=== PATIENT | male | born 1950 | race Caucasian/White ===

== ENCOUNTER 2016-09-19 14:22 | Emergency (ER) | payer SELFPAY ==
[~2016-09-19] VITALS: Ht 162.5 cm; Wt 61.2 kg
[~2016-09-19 14:22] MED LIST: COLCHICINE0.6 MG PO; DICLOFENAC POTA50 MG PO; HYDROCODONE BIT1 T11 PO; K-DUR 1010 MEQ PO; LASIX20 MG PO; MEDROL DOSEPAK4 MG PO
== END 2016-09-19 15:28 | disposition short-term general hospital (02) ==
LOC: ED 14:22
DX: I21.3 ST elevation (STEMI) myocardial infarction of unspecified site (principal)

== ENCOUNTER 2017-11-01 21:32 | Emergency (ER) | payer MEDICAID ==
[~2017-11-01] VITALS: Ht 170.1 cm; Wt 63.5 kg
[2017-11-01 21:37] VITALS: BP 142/70
[2017-11-01] MEDS ORDERED: NAPROSYN500 MG PO (22:17)
[2017-11-01] MEDS ORDERED: PREDNISONE50 MG PO (22:17)
== END 2017-11-01 22:30 | disposition home or self-care (01) ==
LOC: ED 21:32
DX: M10.9 Gout, unspecified (principal); F17.200 Nicotine dependence, unspecified, uncomplicated; I25.2 Old myocardial infarction

== ENCOUNTER 2017-12-25 16:09 | Inpatient (IN) | payer OTHER ==
[~2017-12-25] VITALS: Ht 170.1 cm; Wt 60.8 kg
--- NOTE | ~2017-12-25 | CON ---
[place], [place] REPORT OF CONSULTATION [id number] UNIT #: [id number] ROOM: [facility] DOCTOR: DEAN GRAHAM MD BIRTHDATE: [birth year] DOS: 12/26/2017 CHIEF COMPLAINT: Chest pain. HISTORY OF PRESENT ILLNESS: The patient is a 67-year-old man who is known to have coronary artery disease. He presented on 09/19/2016 with an acute inferior ST elevation myocardial infarction. He was evaluated in the [facility] Emergency Room and sent by helicopter to [facility] where he was taken to the catheterization laboratory by Dr. Chon Gutierrez. The left main had a 30% stenosis. The LAD a 50% stenosis. Diagonal had an 80% stenosis, circumflex was clear. The right coronary artery was dominant with 100% stenosis. He did undergo single vessel angioplasty with 1.5 and 2.5 mm balloons followed by a 2.5 mm drug-eluting stent. He had no residual stenosis afterwards. Unfortunately, after he left the hospital, he was lost to follow up. Our records indicate that we attempted to call him, but his phone was not working. We also sent him letters. He did not come back for followup. His prescriptions ran out after a few months and he has not had them refilled since then. The patient states that he has had chest pain intermittently, but never as serious as it was yesterday. The pains were intense left-sided pains with a burning character. They were much worse than he had had in quite some time and therefore, he came into the Emergency Room. Since his admission here, his cardiogram has shown minimal inferior ST elevation with T-wave inversions. These are actually improved from a year ago. Troponin levels have been abnormal beginning at 0.094 and peaking at 3.040. A subsequent troponin has fallen to 2.840. The patient denies any current chest pain and is breathing easily. He denies any palpitations or lightheadedness. PAST MEDICAL HISTORY: Includes: 1. Atherosclerotic heart disease, status post ST elevation myocardial infarction 09/19/2016. 2. Status post catheterization 09/19/2016. Left main 30% stenosis, LAD 50% stenosis. Diagonal 80% stenosis, circumflex 0% stenosis, dominant right coronary artery is 100% occluded. The patient underwent angioplasty followed by placement of a 2.5 mm drug-eluting stent with 0% residual stenosis. The patient subsequently lost to follow up. 3. History gastroesophageal reflux disease. 4. History of gout. 5. shelter and ongoing cigarette abuse. 6. shelter and ongoing alcohol abuse. FAMILY HISTORY: The patient's father is of unknown causes. The patient's mother of a heart attack. REVIEW OF SYSTEMS: The patient denies diplopia, loss of vision. He denies lightheadedness, syncope. Denies orthopnea or PND. Denies fevers, chills, [place], [place] REPORT OF CONSULTATION NAME: CHERELLE ALMARAZ UNIT #: [id number] ROOM: [facility] DOCTOR: DEAN GRAHAM MD BIRTHDATE: [birth year] sweats or recent weight change. He denies nausea or vomiting. He has had intermittent chest pains up until the time of admission, but has no chest pain now. He has had dyspepsia. He denies any hemoptysis or hematemesis. He denies blood in the stools or urine. He denies any peripheral edema or skin rashes. He denies claudications. He denies polyuria or polydipsia. The remainder of the review of systems is negative except as noted above. SOCIAL HISTORY: The patient lives alone. He drinks alcohol (beer) daily. He smokes about a half a pack of small cigars daily. MEDICATIONS: Prior to admission, the patient has prescriptions for the following, diclofenac 50 mg t.i.d., hydrocodone with acetaminophen p.r.n., colchicine 0.6 mg 2 tablets p.r.n. acute gout attack, prednisone 50 mg daily and naproxen 500 mg b.i.d. ALLERGIES: He has no known drug allergies. PHYSICAL EXAMINATION: GENERAL: The patient is a slender white male who looks his stated age. VITAL SIGNS: Pulse is 63 and regular, blood pressure 149/66. He is afebrile. He weighs 60.8 kg and has a body mass index 21. HEENT: Normocephalic and atraumatic. Extraocular muscles are intact. Sclerae are clear. Pupils equal, round and react to light. The oral mucosa is moist. Tongue is midline. NECK: Supple. He has no jugular distention. Carotids are full without bruits. He has no neck or supraclavicular masses, no thyromegaly. LUNGS: Respirations are unlabored. His chest is clear to auscultation and percussion. He has no presacral edema or chest wall tenderness. CARDIOVASCULAR: His heart had a regular rhythm. He had a fourth heart sound, but no third heart sound or murmur. The PMI was not displaced. He had no precordial heave, lift or thrill. ABDOMEN: Soft and normally active without masses, organomegaly or bruits. EXTREMITIES: Showed no edema. Peripheral pulses were diminished in the feet; however, he does have good hair growth and nail development on the feet. His feet are warm to touch. LABORATORY DATA: Electrocardiograms do show minimal ST elevation in the inferior leads with symmetric T-wave inversions which are markedly improved when compared to 08/2016. He also has minimal ST elevation, but normal R-wave progression across the precordium. This may represent a posterior extension of his infarction. IMPRESSION: 1. Acute non-ST elevation myocardial infarction, prompting current admission. 2. Acute ST elevation inferior wall myocardial infarction 09/19/2016. 3. The patient did not complete the year of dual antiplatelet therapy after receiving a drug-eluting stent. Based on pharmacy records, he probably took the drugs for 3 months and then stopped. 4. History of alcohol abuse. 5. History of tobacco abuse. [place], [place] REPORT OF CONSULTATION NAME: CHERELLE ALMARAZ UNIT #: [id number] ROOM: [facility] DOCTOR: DEAN GRAHAM MD BIRTHDATE: [birth year] 6. History of gout. PLAN: I discussed the patient's options with him. Given his history, I think that our best option would be to manage him medically for the time being with beta blockers, statins, antiplatelet therapies and heparin. We will obtain an echocardiogram for left ventricular function. In about 48 hours. We will plan on a risk stratifying stress test. If it shows that there is still a large area of myocardium at risk, then catheterization will be repeated, but if the stress test is low risk, then continued medical therapy would be appropriate in his situation. The patient was told very directly that his actions will impact his near and long-term prognosis and that if he is not able to take the medications as prescribed, come back for followup, etc. that his life will definitely be shortened. He does seem to understand these issues. [facility] Cardiology and I thank the hospitalist physicians for asking our advice regarding the patient's care. DEAN GRAHAM MD CM:CONSTR:REPORT OF CONSULTATION 0917 12/27/17 0553 interface
--- NOTE | ~2017-12-25 | PR ---
[place], [place] PROGRESS NOTE NAME: CHERELLE ALMARAZ [facility] #: [id number] UNIT #: [id number] ROOM: [facility] DOCTOR: DEAN GRAHAM MD BIRTHDATE: [birth year] DOS: 12/27/2017 SUBJECTIVE: The patient was seen today at his bedside in the intensive care unit on 12/28/2017 for followup of his atherosclerotic heart disease and non-ST elevation myocardial infarction. The patient continues to feel well and has not had any recurrent chest pain for the last 2 days. He is breathing easily and has no signs of heart failure. He is scheduled for a pharmacologic stress test for risk stratification today. PHYSICAL EXAMINATION: VITAL SIGNS: His pulse is 50 and regular, blood pressure is 122/80. He is afebrile. NECK: Supple. He has no jugular distention. Carotids are full. LUNGS: Respirations are unlabored. His chest is clear. HEART: Has a regular rhythm with an S4 gallop. ABDOMEN: Soft and normally active without masses, organomegaly or bruits. EXTREMITIES: Showed no edema. Peripheral pulses are easily palpated bilaterally. LABORATORY DATA: Hemoglobin is 14.0, white count 6100, platelet count 186,000. Sodium 142, potassium 4.0, BUN 14, and creatinine 1.0. Echocardiogram done on 12/26/2017 showed a markedly dilated left ventricle with mild concentric left ventricular hypertrophy. There was global hypokinesis of the left ventricle with akinesis of the inferior wall at the base as well as severe hypokinesis of the distal anterior wall and septum. Estimated ejection fraction was between 35 and 40%. He had stage 1 diastolic relaxation abnormalities. There were no significant valve abnormalities seen. IMPRESSION: 1. Acute non-ST elevation myocardial infarction. 2. History of ST elevation myocardial infarction on 09/19/2016. 3. The patient did not complete one year of dual antiplatelet therapy after receiving a drug-eluting stent on 09/19/2016. Based on pharmacy records, he probably took the medications for no more than 3 months. 4. History of alcohol abuse. 5. History of tobacco abuse. PLAN: The patient does have a cardiomyopathy, which may be part ischemic, but possibly also part related to alcohol abuse. A pharmacologic stress test will be done today to risk stratify him further. If the perfusion images show a low risk for future cardiac events, then we will continue to treat him with guideline directed medical therapies. I thank the hospitalist physicians for asking our advice regarding his care. [place], [place] PROGRESS NOTE NAME: CHERELLE ALMARAZ UNIT #: [id number] ROOM: [facility] DOCTOR: DEAN GRAHAM MD BIRTHDATE: [birth year] DEAN GRAHAM MD CM:PNTRANS 15 DEAN GRAHAM MD 12/28/172114 interface
--- NOTE | ~2017-12-25 | PR ---
[place], [place] PROGRESS NOTE NAME: CHERELLE ALMARAZ [facility] #: [id number] UNIT #: [id number] ROOM: [facility] DOCTOR: DEAN GRAHAM MD BIRTHDATE: [birth year] DOS: SUBJECTIVE: The patient was seen at his bedside in the intensive care unit today, 12/27/2017, for followup of his non-ST elevation myocardial infarction. He feels well today. His chest pains have resolved and he is breathing easily. He has not had any palpitations or dyspnea. He has been sitting up in a chair without problems. PHYSICAL EXAMINATION: VITAL SIGNS: Today, his pulse is 53 and regular, blood pressure is 117/63. He is afebrile. He weighs 60.8 kg and has a body mass index of 21. NECK: Supple. He has no jugular distention. Carotids are full without bruits. LUNGS: Respirations are unlabored. His chest is clear. HEART: Has a regular rhythm with an S4 gallop. ABDOMEN: Soft and normally active. EXTREMITIES: Showed no edema. Echocardiogram done yesterday showed severe left ventricular dilation with mild global hypokinesis of the left ventricle. The inferior wall at the base was akinetic and the distal anterior wall and septum were severely hypokinetic. There was mild concentric left ventricular hypertrophy. Left ventricular systolic function was moderately impaired with an ejection fraction between 35 and 40%. There were stage 1 diastolic relaxation abnormalities. No significant valve abnormalities were seen. LABORATORY DATA: Hemoglobin today is 13.9, white count 5700, BUN 14, creatinine 0.98. Sodium 138, potassium 3.9. Peak troponin was measured yesterday and was 3.040. IMPRESSION: 1. Atherosclerotic heart disease, status post ST-elevation myocardial infarction, 09/19/2016. 2. Acute non-ST elevation myocardial infarction, prompting present admission. 3. The patient did not complete a year of dual antiplatelet therapy after receiving a drug-eluting stent on 09/19/2016. Based on pharmacy records, he probably took the drugs for no more than 3 months. 4. History of alcohol and tobacco abuse. PLAN: The patient has tolerated his myocardial infarction well thus far, but does have significant impairment of LV function. We will proceed with a pharmacologic stress test for risk stratification within the next 24 hours. In the interim, we will continue metoprolol and add an angiotensin receptor missy for his left ventricular dysfunction. I thank the hospitalist physicians for asking our advice regarding his care. [place], [place] PROGRESS NOTE NAME: CHERELLE ALMARAZ UNIT #: [id number] ROOM: [facility] DOCTOR: DEAN GRAHAM MD BIRTHDATE: [birth year] DEAN GRAHAM MD CM:PNTRANS [id number] DEAN GRAHAM MD 12/28/17 0444 interface
--- NOTE | ~2017-12-25 | PR ---
[place], [place] PROGRESS NOTE NAME: CHERELLE ALMRAAZ [facility] #: [id number] UNIT #: [id number] ROOM: 416 DOCTOR: DEAN GRAHAM MD BIRTHDATE: [birth year] DOS: 12/29/2017 SUBJECTIVE: The patient was seen at his bedside in the intensive care unit today for followup of his atherosclerotic heart disease and ischemic cardiomyopathy. He had a pharmacologic stress test yesterday, which showed a large inferior wall myocardial infarction with minimal jane-infarction ischemia. His ejection fraction was 26%. The patient denies any chest pain, palpitations, lightheadedness, syncope, or peripheral edema. He states that he does feel well. PHYSICAL EXAMINATION: VITAL SIGNS: Today, his pulse is 60 and regular, blood pressure is 150/80. He is afebrile. He weighs 60.8 kg and has a body mass index of 21. HEENT: Normocephalic and atraumatic. Extraocular muscles are intact. Sclerae are clear. Pupils are equal, round and react to light. The oral mucosa is moist. Tongue is midline. NECK: Supple. He has no jugular distention or hepatojugular reflux. Carotids are full. There are no bruits. He has no neck or supraclavicular masses, no thyromegaly. LUNGS: Respirations are unlabored. His chest is clear to auscultation and percussion. He has no presacral edema or chest wall tenderness. HEART: Has a regular rhythm with an S3 and an S4 gallop. The PMI is not displaced. There is no precordial heave, lift or thrill. ABDOMEN: Soft and normally active without masses, organomegaly or bruits. EXTREMITIES: Showed no edema. IMPRESSION: 1. Acute non-ST elevation myocardial infarction. 2. History of ST elevation myocardial infarction on September 19, 2016. 3. The patient did not complete 1 year of dual antiplatelet therapy after receiving a drug-eluting stent on September 19, 2016. Based on pharmacy records, he probably took the medications for no more than 3 months. 4. History of alcohol abuse. 5. History of tobacco abuse. PLAN: The patient has evidence for an ischemic cardiomyopathy with a large inferior fixed defect. Further revascularization probably would not improve his prognosis at this time. He is a candidate for maximally tolerated guideline directed medical therapy and I have increased his losartan and added spironolactone to his regimen today. We will follow his vital signs and electrolytes tomorrow and increase his activities. The patient could be considered a candidate for a LifeVest, but his poor compliance in the past makes it unlikely that he uses the device correctly. For now, we will defer LifeVest prescription and just treat him medically. I have strongly recommended to the patient that he never consume alcohol again. I have also strongly recommended that he stop smoking. He should establish himself with a primary physician and followup in the resident's [facility] Medicine [facility] here would be an excellent plan since they could help him get [place], [place] PROGRESS NOTE NAME: CHERELLE ALMARAZ UNIT #: [id number] ROOM: [facility] DOCTOR: DEAN GRAHAM MD BIRTHDATE: [birth year] his medications as well. If he is hemodynamically stable and has normal electrolytes, he could probably be discharged safely to home tomorrow. We thank the hospitalist physicians for asking our advice regarding his care. DEAN GRAHAM MD CM:FORTINO [phone] DEAN GRAHAM MD 12/29/172207 interface
[~2017-12-25 16:09] MED LIST changes: +NAPROSYN500 MG PO; +PREDNISONE50 MG PO
[2017-12-25 16:10] VITALS: BP 167/77
[2017-12-25 16:36] LABS: HEMOGLOBIN 15.1 g/dl (14.0-18.0); MEAN CELL VOLUME 110.8 fl (80.0-94.0); MEAN CORPUSCULAR HGB CONC 34.3 g/dl (33.0-37.0); PLATELET COUNT AUTOMATED 217 10*3/uL (130-400); RED BLOOD COUNT 3.97 10*6/uL (4.50-5.90); RED CELL DISTRI WIDTH 13.6 % (0-14.5); WHITE BLOOD COUNT 6.9 10*3/uL (4.8-10.8)
[2017-12-25 16:45] LABS: INTERNATIONAL NORM RATIO 0.9 (2.0-3.5)
[2017-12-25 16:54] LABS: BASOPHILS 1 % (0-1); PLATELET SUFFICIENCY NORMAL (NORMAL); TOTAL CELLS COUNTED 100 #CELLS
[2017-12-25 16:55] LABS: ALBUMIN 4.1 gm/dl (3.1-4.5); ALKALINE PHOSPHATASE 69 U/L (45-117); BUN 8 mg/dl (7-24); CHLORIDE 106 mmol/L (98-107); CREATININE 1.07 mg/dL (0.70-1.30); POTASSIUM 4.3 mmol/L (3.5-5.1); SGOT/AST 19 IU/L (3-35); SGPT/ALT 20 U/L (12-78); SODIUM 142 mmol/L (136-145)
[2017-12-25 16:57] LABS: TROPONIN I 0.094 ng/ml (<0.045)
[2017-12-25 17:05] VITALS: BP 152/73
[2017-12-25 17:42] VITALS: BP 149/75
[2017-12-25 18:42] VITALS: BP 157/75
[2017-12-25 20:00] VITALS: BP 158/70; BP 162/78
[2017-12-26] VITALS: BP 152/75
[2017-12-26 04:00] VITALS: BP 155/81
[2017-12-26 04:41] LABS: HEMOGLOBIN 14.4 g/dl (14.0-18.0); MEAN CELL VOLUME 110.2 fl (80.0-94.0); MEAN CORPUSCULAR HGB 37.8 pg (27.0-31.0); MEAN CORPUSCULAR HGB CONC 34.3 g/dl (33.0-37.0); MEAN PLATELET VOLUME 9.9 fl (9.6-12.3); PLATELET COUNT AUTOMATED 194 10*3/uL (130-400); RED BLOOD COUNT 3.81 10*6/uL (4.50-5.90); RED CELL DISTRI WIDTH 13.5 % (0-14.5); WHITE BLOOD COUNT 5.7 10*3/uL (4.8-10.8)
[2017-12-26 04:52] LABS: BUN 10 mg/dl (7-24); CHLORIDE 104 mmol/L (98-107); CREATININE 0.98 mg/dL (0.70-1.30); SODIUM 140 mmol/L (136-145)
[2017-12-26 04:56] LABS: CHOLESTEROL 189 mg/dL (<200); FREE T4 0.93 ng/dl (0.76-1.46); HDL CHOLESTEROL 76 mg/dl (40-60); LDL CHOLESTEROL 92 mg/dL (9-159); PHOSPHOROUS 3.9 mg/dL (2.5-4.9); TRIGLYCERIDES 106 mg/dl (<150); VLDL CHOLESTEROL 21 mg/dL (6-40)
[2017-12-26 05:02] LABS: BASOPHILS 1 % (0-1); TOTAL CELLS COUNTED 100 #CELLS
[2017-12-26 05:03] LABS: PLATELET SUFFICIENCY NORMAL (NORMAL)
[2017-12-26 05:04] LABS: POLYCHROMASIA SLIGHT
[2017-12-26 07:01] LABS: VITAMIN D, 25-HYDROXY 17.9 ng/mL (30-100)
[2017-12-26 08:00] VITALS: BP 149/66
[2017-12-26 12:00] VITALS: BP 122/60
[2017-12-26 16:00] VITALS: BP 150/76
[2017-12-26 19:59] VITALS: BP 154/70
[2017-12-27] VITALS: BP 155/80
[2017-12-27 04:00] VITALS: BP 143/64
[2017-12-27 04:51] LABS: HEMATOCRIT 41.2 % (42.0-52.0); HEMOGLOBIN 13.9 g/dl (14.0-18.0); MEAN CELL VOLUME 110.8 fl (80.0-94.0); MEAN CORPUSCULAR HGB 37.4 pg (27.0-31.0); MEAN CORPUSCULAR HGB CONC 33.7 g/dl (33.0-37.0); MEAN PLATELET VOLUME 10.5 fl (9.6-12.3); PLATELET COUNT AUTOMATED 188 10*3/uL (130-400); RED BLOOD COUNT 3.72 10*6/uL (4.50-5.90); RED CELL DISTRI WIDTH 13.3 % (0-14.5); WHITE BLOOD COUNT 5.7 10*3/uL (4.8-10.8)
[2017-12-27 05:05] LABS: BUN 14 mg/dl (7-24); CHLORIDE 102 mmol/L (98-107); CREATININE 0.98 mg/dL (0.70-1.30); POTASSIUM 3.9 mmol/L (3.5-5.1); SODIUM 138 mmol/L (136-145)
[2017-12-27 05:36] LABS: BASOPHILS 2 % (0-1); PLATELET SUFFICIENCY NORMAL (NORMAL); TOTAL CELLS COUNTED 100 #CELLS
[2017-12-27 08:00] VITALS: BP 133/76
[2017-12-27 12:00] VITALS: BP 117/63
[2017-12-27 16:00] VITALS: BP 107/65
[2017-12-27 20:00] VITALS: BP 129/62
[2017-12-28] VITALS: BP 128/78
[2017-12-28 04:00] VITALS: BP 122/80
[2017-12-28 05:56] LABS: BUN 14 mg/dl (7-24); CHLORIDE 104 mmol/L (98-107); CREATININE 1.07 mg/dL (0.70-1.30); SODIUM 142 mmol/L (136-145)
[2017-12-28 05:57] LABS: HEMATOCRIT 41.4 % (42.0-52.0); MEAN CELL VOLUME 111.9 fl (80.0-94.0); MEAN CORPUSCULAR HGB 37.8 pg (27.0-31.0); MEAN CORPUSCULAR HGB CONC 33.8 g/dl (33.0-37.0); MEAN PLATELET VOLUME 10.6 fl (9.6-12.3); PLATELET COUNT AUTOMATED 186 10*3/uL (130-400); RED CELL DISTRI WIDTH 13.2 % (0-14.5); WHITE BLOOD COUNT 6.1 10*3/uL (4.8-10.8)
[2017-12-28 07:18] LABS: BASOPHILS 1 % (0-1); PLATELET SUFFICIENCY NORMAL (NORMAL); TOTAL CELLS COUNTED 100 #CELLS
[2017-12-28 08:00] VITALS: BP 135/66
[2017-12-28 12:00] VITALS: BP 135/67
[2017-12-28 16:00] VITALS: BP 126/70
[2017-12-28 20:00] VITALS: BP 120/74
[2017-12-29] VITALS: BP 125/66
[2017-12-29 04:00] VITALS: BP 116/63
[2017-12-29 06:11] LABS: BUN 11 mg/dl (7-24); CHLORIDE 105 mmol/L (98-107); CREATININE 1.07 mg/dL (0.70-1.30); SODIUM 140 mmol/L (136-145)
[2017-12-29 06:23] LABS: HEMATOCRIT 42.8 % (42.0-52.0); HEMOGLOBIN 14.5 g/dl (14.0-18.0); MEAN CELL VOLUME 111.7 fl (80.0-94.0); MEAN CORPUSCULAR HGB 37.9 pg (27.0-31.0); MEAN CORPUSCULAR HGB CONC 33.9 g/dl (33.0-37.0); PLATELET COUNT AUTOMATED 178 10*3/uL (130-400); RED BLOOD COUNT 3.83 10*6/uL (4.50-5.90); RED CELL DISTRI WIDTH 13.1 % (0-14.5); WHITE BLOOD COUNT 6.5 10*3/uL (4.8-10.8)
[2017-12-29 07:48] LABS: BASOPHILS 1 % (0-1); PLATELET SUFFICIENCY NORMAL (NORMAL); TOTAL CELLS COUNTED 100 #CELLS
[2017-12-29 08:00] VITALS: BP 135/63
[2017-12-29 12:00] VITALS: BP 150/80
[2017-12-29 16:00] VITALS: BP 115/67
[2017-12-29 20:00] VITALS: BP 111/55
[2017-12-30] VITALS: BP 118/62
[2017-12-30 07:11] LABS: BUN 18 mg/dl (7-24); CHLORIDE 105 mmol/L (98-107); POTASSIUM 4.3 mmol/L (3.5-5.1); SODIUM 140 mmol/L (136-145)
[2017-12-30 08:00] VITALS: BP 120/64
[2017-12-30 12:00] VITALS: BP 111/63
[2017-12-30] MEDS ORDERED: LOSARTAN POTASS25 M1 PO (15:58)
[2017-12-30] MEDS ORDERED: ATORVASTATIN CA80 M1 PO (15:58)
[2017-12-30] MEDS ORDERED: VITAMIN D-32000 UNIT PO (15:58)
[2017-12-30] MEDS ORDERED: ASPIRIN ADULT L81 M2 PO (15:58)
[2017-12-30] MEDS ORDERED: ALDACTONE25 MG PO (15:58)
[2017-12-30] MEDS ORDERED: LOPRESSOR25 MG PO (15:58)
[2017-12-30 16:00] VITALS: BP 115/58
== END 2017-12-30 17:37 | disposition home or self-care (01) | DRG 280 ==
LOC: ED 16:09 → EDHOLD 17:43 → ICCU 17:43 → 4E 12-29 14:59
PROVIDERS: Internal Medicine; Internal Medicine Cardiovascular Disease
PROC: 4A02XM4 Measurement of Cardiac Total Activity, External Approach (ICD-10-PCS; principal; 2017-12-28)
PROC: 3E073KZ Introduction of Other Diagnostic Substance into Coronary Artery, Percutaneous Approach (ICD-10-PCS; 2017-12-28)
DX: I21.4 Non-ST elevation (NSTEMI) myocardial infarction (principal); I50.31 Acute diastolic (congestive) heart failure; F10.10 Alcohol abuse, uncomplicated; I25.9 Chronic ischemic heart disease, unspecified; R74.8 Abnormal levels of other serum enzymes; R00.1 Bradycardia, unspecified; K21.9 Gastro-esophageal reflux disease without esophagitis; I25.5 Ischemic cardiomyopathy; I25.10 Atherosclerotic heart disease of native coronary artery without angina pectoris; Z60.2 Problems related to living alone; M1A.09X0 Idiopathic chronic gout, multiple sites, without tophus (tophi); I25.2 Old myocardial infarction; Z72.0 Tobacco use; Z71.6 Tobacco abuse counseling; Z98.61 Coronary angioplasty status; Z79.899 Other long term (current) drug therapy; Z82.49 Family history of ischemic heart disease and other diseases of the circulatory system; Z91.14 Patient's other noncompliance with medication regimen

== ENCOUNTER → 2018-01-11 | Outpatient (CLI) | payer OTHER ==
[~2018-01-11] MED LIST changes: +ALDACTONE25 MG PO; +ASPIRIN ADULT L81 M2 PO; +ATORVASTATIN CA80 M1 PO; +LOPRESSOR25 MG PO; +LOSARTAN POTASS25 M1 PO; +VITAMIN D-32000 UNIT PO
== END | disposition home or self-care (01) ==
LOC: RESCLI 01:39
DX: Z09 Encounter for follow-up examination after completed treatment for conditions other than malignant neoplasm (principal); Z12.11 Encounter for screening for malignant neoplasm of colon; Z23 Encounter for immunization; Z13.6 Encounter for screening for cardiovascular disorders; Z11.59 Encounter for screening for other viral diseases; I25.2 Old myocardial infarction; I25.118 Atherosclerotic heart disease of native coronary artery with other forms of angina pectoris; I50.42 Chronic combined systolic (congestive) and diastolic (congestive) heart failure; F10.10 Alcohol abuse, uncomplicated; D75.89 Other specified diseases of blood and blood-forming organs; R00.1 Bradycardia, unspecified; R35.1 Nocturia; R09.89 Other specified symptoms and signs involving the circulatory and respiratory systems; Z72.0 Tobacco use; Z79.899 Other long term (current) drug therapy

== ENCOUNTER → 2018-01-22 | Outpatient (CLI) | payer OTHER | END | disposition home or self-care (01) | LOC: US 03:32 | DX: Z13.6 Encounter for screening for cardiovascular disorders (principal) ==

== ENCOUNTER → 2018-04-24 | Outpatient (CLI) | payer OTHER | END | disposition home or self-care (01) | LOC: CARD 11:49 | DX: I25.5 Ischemic cardiomyopathy (principal); I25.10 Atherosclerotic heart disease of native coronary artery without angina pectoris ==

== ENCOUNTER 2019-03-11 09:50 | Emergency (ER) | payer OTHER ==
[~2019-03-11] VITALS: Ht 170.1 cm; Wt 67.1 kg
[2019-03-11 09:50] VITALS: BP 124/42
[2019-03-11] MEDS ORDERED: TYLENOL325 M1 PO (11:50)
== END 2019-03-11 12:02 | disposition home or self-care (01) ==
LOC: ED 09:50
DX: M25.571 Pain in right ankle and joints of right foot (principal); M25.561 Pain in right knee; M79.89 Other specified soft tissue disorders; M10.9 Gout, unspecified; F17.200 Nicotine dependence, unspecified, uncomplicated; Z79.899 Other long term (current) drug therapy; Z79.82 Long term (current) use of aspirin

== ENCOUNTER 2019-03-20 16:28 | Inpatient (IN) | payer OTHER ==
[~2019-03-20] VITALS: Ht 175.2 cm; Wt 61.3 kg
--- NOTE | ~2019-03-20 | PR ---
[place], [place] PROGRESS NOTE NAME: CHERELLE ALMARAZ [facility] #: [id number] UNIT #: [id number] ROOM: [facility] DOCTOR: GABRIEL BOGGS,JACKIE Nicole BIRTHDATE: [birth year] DOS: 03/24/2019 NEPHROLOGY FOLLOWUP NOTE SUBJECTIVE: The patient was seen and examined. He is awake and alert. He is on nasal cannula. He is eating dinner. He apparently developed pulmonary edema earlier today and was given Lasix. He appears comfortable presently. Per the nurse, there are plans for cardiac catheterization tomorrow. PHYSICAL EXAMINATION: VITAL SIGNS: Temperature 97.6, pulse 74, respiration 22, blood pressure 93/51. HEENT: Shows no JVD. LUNGS: Diminished breath sounds with no wheeze. HEART: S1, S2. No rub. ABDOMEN: Soft, nontender. EXTREMITIES: Showed no edema. SKIN: Showed no rash. LABORATORY DATA: Hemoglobin 9.6, white count 9.5, platelets 286. Sodium 143, potassium 3.9, CO2 of 20, BUN 25, creatinine 1.4, glucose 127, calcium 7.5. ASSESSMENT AND PLAN: 1. Acute kidney injury, likely prerenal. The patient's renal function has improved and is fairly stable, fluctuating creatinine levels. Monitor labs while in the hospital. Dose meds for current creatinine clearance. Give diuretics as felt needed. 2. Anemia. Follow H and H. Transfuse as needed. 3. Non-ST elevation myocardial infarction. Management per Cardiology. Plans for cardiac catheterization noted. He would have some risk of contrast-induced nephropathy, especially if ongoing diuretics. 4. Gout. Clinically improved. On steroids. 5. Questionable pneumonia, on antibiotics. JACKIE RIOS MD CM:PNTRANS [phone] JACKIE RIOS MD 03/25/19 0319 interface
--- NOTE | ~2019-03-20 | EKG ---
[place], [place] ELECTROCARDIOGRAM REPORT NAME: CHERELLE ALMARAZ UNIT #: [id number] ROOM: [facility] DOCTOR: MANDY DRAFT REPORT BIRTHDATE: [birth year] [facility] Test Date: 2019-03-23 Test Time: 20:28:12 Pat Name: CHERELLE ALMARAZ Department: Room: [place] [address] Gender: M Dowel Pin Man: : 1950 Requested By: MIKE CHAHAL Order Number: [id number] Reading MD: Tracy So MD Measurements Intervals [place] Rate: 105 P: 44 OR: 176 QRS: 54 QRSD: 104 T: 177 QT: 364 QTc: 482 Interpretive Statements Sinus tachycardia Low voltage, extremity leads Repol abnrm suggests ischemia, anterolateral Artifact in lead(s) II and baseline wander in lead(s) II,III,aVR,aVL,aVF,V1,V3,V4 Compared to ECG 03/23/2019 03:00:35 Possible ischemia now present Sinus rhythm no longer present Electronically Signed On 03-24-2019 12:20:38 PDT by Tracy So MD CM:EKGRPT:ELECTROCARDIOGRAM REPORT 27 1220 MIKE BUSTILLOS DRAFT REPORT MIKE CHAHAL DO
--- NOTE | ~2019-03-20 | CON ---
[place], [place] REPORT OF CONSULTATION NAME[facility]MARAZ [id number] UNIT #: [id number] ROOM: [facility] DOCTOR: RAMESH MCKEON MD BIRTHDATE: [birth year] DOS: 03/23/2019 PULMONARY CONSULTATION, EVALUATION AND MANAGEMENT REASON FOR CONSULTATION: Assess the patient for respiratory failure. HISTORY OF PRESENT ILLNESS: This is a 69-year-old white male patient who has been admitted to the hospital on 03/20/2019. He has been admitted to the hospital because of progressive pain of the right knee with swelling. He has been noted with acute gouty arthritis, which has been treated with the medication. He has been assessed by Dr. Conway from the orthopedic standpoint as well. Yesterday, the patient was noted some confusional status, has been noted chronic alcohol dependence that was admitted by the patient. He had received the Ativan yesterday and morphine resulting in some change in mental status, requiring transfer to the intensive care unit. He has been ordered the BiPAP from yesterday. During this admission, he was also noted non-ST segment elevation myocardial infarction as well as hyponatremia. The patient has not been reporting any symptoms of shortness of breath or any symptoms of coughing, chest pain or wheezing stated by the patient. The history is extremely limited because of current overall medical status. REVIEW OF SYSTEMS: Could not be obtained because of the patient's current sleepiness, which has been noted. Unable to get history, majority of history is noted from the medical record documentation by the other physicians, resident's notes, as well as nurse's notes. PAST MEDICAL HISTORY: 1. Noted congestive heart failure with decreased ejection fraction, noted low ejection fraction with EF estimated at 25%. Echocardiogram on 03/22/2019, the patient's ejection fraction 25% with multi-wall hypokinesis. Diastolic dysfunction was also stated. 2. History of coronary artery disease. 3. History of alcohol dependence. 4. Chronic tobacco use. 5. Hyperlipidemia. 6. Gastroesophageal reflux. 7. History of gout. 8. Essential hypertension. 9. Tobacco dependence. PAST SURGICAL HISTORY: Reported Cardiac catheterization, coronary stents placement x 1 previously. SOCIAL HISTORY: The patient stated at this time not , noted with history of tobacco use, about quarter to half a pack of cigarettes per day from the age of [age] years old. He has been reported drinking beer about 7 beers a day. FAMILY HISTORY: Unknown. HOME MEDICATIONS: Listed as aspirin, Imdur, losartan, metoprolol, [place], [place] REPORT OF CONSULTATION NAME: CHERELLE ALMARAZ UNIT #: [id number] ROOM: [facility] DOCTOR: OG HOWARD MD,RAMESH BIRTHDATE: [birth year] spironolactone, and Brilinta. CURRENT MEDICATIONS: Which were actively administered noted as clopidogrel, heparin intravenous administration for the non-ST segment myocardial infarction per protocol, famotidine, metoprolol tartrate, Imdur, aspirin, Solu-Medrol 60 mg b.i.d., nicotine placement patches 14 mg to the skin daily, intravenous vancomycin, Zosyn, Levaquin, and p.r.n. Ativan, also remains on the MAR. DRUG ALLERGIES: No known drug allergies. PHYSICAL EXAMINATION: GENERAL: A 69-year-old white male patient. The patient is currently using the bilevel treatment. Height of 5 feet 9 inches, weight 135 pounds, BMI 19.9 recorded on admission. VITAL SIGNS: The temperature noted as normal. The respiratory rate recorded at 21-24, heart rate 66-98, blood pressure 100/49 to 125/62. Intake is 1.49 liters, output 800 mL as well. The pulse oxygen saturation with a 100% nonrebreather mask as 97% saturation and 40% BiPAP is 93% saturation to 100% saturation. HEENT: Examination shows head was atraumatic. Eyes nonicterus. Limited exam. CARDIOVASCULAR: S1, S2 is audible. LUNGS: Noted as decreased breath sounds, questionable crackles in the lungs, occasional wheezing. ABDOMEN: Soft, nontender. Bowel sounds present. EXTREMITIES: Noted without any acute edema, clubbing, or cyanosis. MUSCULOSKELETAL: Noted without any obvious deformities. SKIN: Visible skin noted with some bruising noted in the area of the right knee. CENTRAL NERVOUS SYSTEM: Limited, but does not show any focal neurologic deficit. LABORATORY DATA: I assessed. On admission, PT and PTT on 03/20/2019 was noted as normal. The CMP that was done on 03/20/2019 on admission, BUN 18, creatinine 1.38. Sodium 129 at that time. Lactic acid 1.3. ESR was recorded 110 on 03/15/2019. CBC on 03/20/2019, WBC count 4.4, hemoglobin 9.2, platelet count was normal. PTT was noted therapeutic this morning of 55.3. Troponin was noted elevated mildly in the last 24 hours. The BMP 920, BUN 23, creatinine ____ at that time CO2 was 14. CBC yesterday, WBC count 11.5, hemoglobin 9.8, platelet count remains normal. Lactic acid this morning was noted as 2.5 previously as 2.8. CBC that was done this morning, the patient was noted with WBC count of 9.6, hemoglobin 9.3, platelet count was normal at 90% segmented neutrophils. CMP: BUN 23, creatinine 1.37, glucose 156. First arterial blood gas done at 02:38 hours, was venous blood gas 100% nonrebreather mask. Arterial blood gas that was done at 04:05 hours, pH of 7.44, pCO2 20, pO2 107 on 40% oxygen with BiPAP. Another arterial blood gas repeated pH of 7.32, pCO2 of 28, pO2 73 on 40% of oxygen. Troponin this morning at 09:23, elevated at ____. There is only one chest x-ray done since admission, on 03/23/2019 at 2:57 a.m., it shows evidence appear like interstitial edema with pulmonary infiltration and patchy infiltration. Cannot be completely excluded. There is no visible pleural fluid, hyperinflated lungs noted, finding consistent with severe COPD. [place], [place] REPORT OF CONSULTATION NAME: CHERELLE ALMARAZ [facility] UNIT #: [id number] ROOM: [facility] DOCTOR: FREDY MCKEON MDM BIRTHDATE: [birth year] IMPRESSION: 1. The patient has been currently admitted to the hospital, was noted with acute severe hypoxemic respiratory failure and non-ST segment elevation myocardial infarction, very likely resulting from the acute myocardial infarction with pulmonary edema as a cause of the acute hypoxemic respiratory failure. 2. History of chronic alcohol dependence with withdrawal was also noted. 3. History of gout with acute flare-up, which has been currently treated effectively with the medications, seem to be improving and resolving. 4. Rule out acute pneumonia at this time. The patient has been receiving multiple broad spectrum intravenous antibiotics. 5. The patient with acute exacerbation of chronic obstructive pulmonary disease noted on admission. 6. The patient with acute kidney injury, chronic kidney disease, multifactorial including from congestive heart failure. 7. Hyponatremia related to kidney injury from congestive heart failure is very likely. PLAN OF MANAGEMENT: The patient has been currently receiving the broad spectrum intravenous antibiotics. CT scan of the chest will be ordered for more clear assessment for the acute pneumonia and also to differentiate for the congestive heart failure and other findings. Minimize the use of Ativan if possible, if the patient does not have any withdrawal. Oxygen supplementation could be given with high flow nasal cannula for the medical hypoxemic respiratory failure, use of the BiPAP in case of difficulty maintaining pulse oxygen saturation. Based on the CT scan of the chest further assessment, the patient intervention will be ordered. The dose of Solu-Medrol will be decreased. The patient was not noted severe acute exacerbation of chronic obstructive pulmonary disease or wheezing this morning of assessment. Bronchodilators to be continued as ordered. Culture results will be followed of the blood and other. Blood culture will be ordered for the patient, which has not been collected. Other therapy, plan of management, and additional treatment changes will be recommended based on progression of the illness. Usual care, other therapy, plan of management. Close monitor Intensive Care Unit will be continued for the non-ST segment elevation myocardial infarction and acute hypoxemic respiratory failure. Usual care, other therapy, plan of management will be ordered based on the progression of his illness. Total time in pulmonary critical care, evaluation and management for this consultation was 36 minutes. [place], [place] REPORT OF CONSULTATION NAME: CHERELLE ALMARAZ [facility] [id number] UNIT #: [id number] ROOM: [facility] DOCTOR: RAMESH MCKEON MD BIRTHDATE: [birth year] RAMESH FOLEY MD CM:CONSTR:REPORT OF CONSULTATION 1522 03/24/19 0425 interface
--- NOTE | ~2019-03-20 | EKG ---
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
--- NOTE | ~2019-03-20 | CON ---
[place], [place] REPORT OF CONSULTATION [id number] UNIT #: [id number] ROOM: [facility] DOCTOR: DANIEL LAI MD BIRTHDATE: [birth year] DOS: 03/23/2019 SUBJECTIVE: I was called to evaluate this patient from the second-year resident in the ICU at 0250 hours. The patient had been originally admitted for alcohol-related problems, and developed chest pain and was noted to have a non-ST elevation myocardial infarction. He is currently awaiting transfer to [facility] for cardiac catheterization. The resident called me because of the patient's increasing tachypnea and hypoxemia. The patient has been receiving Ativan for alcohol withdrawal symptoms. The staff has noted an increase in heart rate and a decrease in pulse oximetry, and I was called when the patient's oxygen saturations dropped to 70%. There were no complaints of pain, no cough, no fever, but there was considerable shortness of breath. Additional oxygen did not improve the patient's condition. There is a reported history of COPD. When I evaluated him, his respiratory rate was between 48 and 50 times a minute; his heart rate was in the high 90s. He was rather vyas, not diaphoretic and not complaining of pain. MEDICATIONS: Include heparin and Ativan. PHYSICAL EXAMINATION: GENERAL: He was awake and alert, offering no spontaneous conversation. On questioning, he was able to tell me that he was short of breath. Denying any pain in the chest or abdomen. His color was vyas. HEAD AND NECK: Unremarkable. Jugular venous pressure was elevated. LUNGS: He had coarse rales bilaterally, but no dullness to percussion. HEART: Tachycardic. PMI not displaced. No murmurs, gallops, rubs or clicks appreciated. ABDOMEN: Soft. Bowel sounds were present. No tenderness, no masses, no organomegaly. EXTREMITIES: Well perfused. No edema. No tenderness in the calves or thighs. Pulses were 1+ bilaterally. NEUROLOGIC: He was awake, alert to place, but not alert to pain. There were no lateralizing neurological deficits. ASSESSMENT: Acute respiratory failure. Recommended a stat chest x-ray and EKG, basic chemistry profile, CBC with diff, troponin, arterial blood gases. BiPAP was initiated with 12/6 settings, titrate to maintain oxygen between 92% and 96% with significant improvement with BiPAP, and over the course of the next 30 minutes, his heart rate dropped to the mid-80s, sinus rhythm without any ectopic activity or malignant rhythms. A 12-lead EKG interpreted by me showed a normal sinus rhythm with a heart rate of 84 beats per minute. There was minimal ST elevation in the inferior leads, unchanged from a previous EKG. The QT interval was normal at 475 milliseconds. Chest x-ray, 1 view, showed a slightly enlarged heart, bilateral opacities suggestive of acute pulmonary edema; however, when I spoke to the resident, this may well be related to a pneumonic infiltrate. Arterial blood gases were pending. Pulse oximetry up to 96% on 40% O2, heart rate down to 76 beats per minute and respirations were down to 28 to 30 beats per minute. The patient was clearly more comfortable and the resident will also contact the patient's [place], [place] REPORT OF CONSULTATION NAME: CHERELLE ALMARAZ UNIT #: [id number] ROOM: [facility] DOCTOR: DANIEL LAI MD BIRTHDATE: [birth year] attending physician. Condition is critical, but stable. DANIEL LAI MD CM:CONSTR:REPORT OF CONSULTATION 1738 04/17/19 1003 interface
--- NOTE | ~2019-03-20 | PR ---
[place], [place] PROGRESS NOTE NAME: CHERELLE ALMARAZ [facility] #: [id number] UNIT #: [id number] ROOM: [facility] DOCTOR: OG HOWARD MD,RAMESH BIRTHDATE: [birth year] DOS: 03/24/2019 SUBJECTIVE: The patient was seen and examined. He has been noted with oxygen desaturation significantly last night. He was receiving BiPAP at the setting of 12/8. Oxygen requirement was noted significantly increased and the patient's BiPAP was adjusted to 16/12. This had resulted in improvement in the oxygenation, but still requiring oxygen supplementation more than yesterday. A 60% oxygen supplementation was needed. The patient has been given intravenous Lasix this morning 60 mg and started with effective diuresis in the last 2 hours and about 1400 mL of urine output was noted. CT scan of the chest was completed yesterday as ordered and reviewed. The patient has been noted much more awake and alert this morning. This morning, the patient was continued on the bilevel treatment as assessed. He had not been noted in any acute distress on this morning of assessment. REVIEW OF SYSTEMS: Could not be completed. Continue use of the BiPAP. OBJECTIVE: GENERAL: The patient is comfortably resting. VITAL SIGNS: Normal temperature, respiratory rate recorded between 42-22, heart rate 82-117, blood pressure 131/98-104/59. Intake for the patient was recorded as mL. The pulse oxygen saturation on 60% was noted 100% saturation this morning. HEENT: Examination shows head was atraumatic. Eyes nonicterus. NECK: Supple. CARDIOVASCULAR: S1, S2 audible. LUNGS: Crackles noted bilaterally. There was no wheezing. ABDOMEN: Soft, nontender. EXTREMITIES: Mild edema. MUSCULOSKELETAL: Without acute deformities. CENTRAL NERVOUS SYSTEM: The patient was noted intact. There were no gross focal neurologic deficit was noted. LABORATORY DATA: CBC that was done this morning: WBC count of 9.5, hemoglobin 9.3, platelet count 286,000. BMP this morning, BUN 25, creatinine 1.42, glucose 127. CO2 was 20. Arterial blood gas at 548, pH of 7.44, pCO2 20, pO2 of 58 before changing the BiPAP 50% oxygen. Arterial blood gas that was obtained, as assessed this afternoon, pH of 7.51, pCO2 of 26, pO2 83 was noted. Chest x-ray noted with diffuse pulmonary edema picture that was noted yesterday. CT scan chest that was completed yesterday, reviewed the film, finding highly suggestive of pulmonary edema very likely. IMPRESSION: 1. The patient who has been currently noted with acute severe hypoxemic respiratory failure. 2. Mild respiratory alkalosis secondary to mechanical ventilation and tachypnea resulting from the BiPAP as well. 3. The patient with acute congestive heart failure with a reduced ejection fraction noted 25%. 4. Coronary artery disease. [place], [place] PROGRESS NOTE NAME: CHERELLE ALMARAZ UNIT #: [id number] ROOM: [facility] DOCTOR: OG HOWARD MD,RAMESH BIRTHDATE: [birth year] 5. The patient with history of past alcohol use as well with the withdrawal, which seemed to be stable at the present time. 6. The patient with a history of gouty arthritis as well noted on admission. 7. Acute exacerbation of chronic obstructive pulmonary disease was also noted. 8. Acute kidney injury noted multifactorial. 9. Hyponatremia related to acute kidney injury, congestive heart failure, other illnesses. PLAN OF MANAGEMENT: At this time, the patient will be continued on diuretic, though the Solu-Medrol will be further decreased to 30 mg daily since there was no wheezing. Aggressive management of congestive heart failure to be continued. Discontinue antibiotics as there is no suspicion of acute pneumonia in this patient. Other therapy, plan of management, additional treatment changes will be made for this patient based on progression of illness. Follow up chest x-ray in the morning as well. Titrate oxygen supplementation to maintain pulse oxygen saturation of 92% or greater. Other additional treatment changes will be made for this patient based on the progression of his illness. Keep the patient in Intensive Care Unit for management of the current severe acute hypoxemic respiratory failure, acute congestive heart failure, pulmonary edema and management of multiple other medical problems. Supportive care, other therapy, plan of management. Additional treatment changes will continue to be made based on progression of the illness. DVT prophylaxis. Medical management of tachycardia as well. Total time spent in pulmonary critical care evaluation and management was 36 minutes. RAMESH FOLEY MD CM:PNTRANS [id number] RAMESH HOWARD MD 03/24/19 2316 interface
--- NOTE | ~2019-03-20 | EKG ---
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
--- NOTE | ~2019-03-20 | EKG ---
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
--- NOTE | ~2019-03-20 | EKG ---
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
--- NOTE | ~2019-03-20 | CON ---
[place], [place] REPORT OF CONSULTATION NAME: CHERELLE ALMARAZ [facility] #: [id number] UNIT #: [id number] ROOM: [facility] DOCTOR: RYAN BOGGS,ALEK BIRTHDATE: [birth year] DOS: 03/22/2019 REASON FOR CONSULTATION: Chest pain, abnormal EKG, elevated cardiac enzymes. HISTORY OF PRESENT ILLNESS: The patient is a 69-year-old gentleman with history of coronary artery disease, cardiomyopathy, presented for right knee pain for the past couple of weeks. Evidently, he was seen in the Emergency Room a week ago and given some pain medications. He presented with a swollen leg and knee and admitted to the hospital. He noted to have elevated cardiac troponins and also developed some chest pain with EKG changes, hence Cardiology was consulted. The patient has been smoking, he cut back on cigarettes, but drinks about 7 beers a day. He developed some resting substernal chest pain like heaviness in the mid sternal area. No radiation, associated with some shortness of breath. He was noted to have some significant EKG changes. He was treated with nitro paste, heparin and repeat EKG showed resolution of his EKG changes and the chest pain was resolved. His cardiac troponins are elevated. Denies any shortness of breath or PND or orthopnea. No nausea, vomiting, diarrhea. No fever and chills. No neurologic symptoms. No bladder or bowel symptoms. No genitourinary symptoms. REVIEW OF SYSTEMS: Review of 10 systems negative except as mentioned above. PAST MEDICAL HISTORY: 1. Coronary artery disease, status post stent in 2017 to the right coronary artery. 2. LV dysfunction with ejection fraction 40% by echo 2018. 3. Hypertension. 4. Tobacco use. 5. Alcohol use. 6. Dyslipidemia. 7. Gout. 8. Acid reflux. PAST SURGICAL HISTORY: Coronary stents. SOCIAL HISTORY: The patient does smoke about one-fourth pack a day. Alcohol use, the patient does drink about 7 beers a day, but no other illicit drugs. FAMILY HISTORY: Father from unknown cause. Mother from heart attack. ALLERGIES: No known drug allergies. HOME MEDICATIONS: Reviewed. PHYSICAL EXAMINATION VITAL SIGNS: Blood pressure 124/79, pulse 77, respirations 20. GENERAL: Alert, comfortable, in no acute distress. NECK: Supple, no distended neck veins, no carotid bruit. CHEST: Symmetrical, nontender. [place], [place] REPORT OF CONSULTATION NAME: CHERELLE ALMARAZ UNIT #: [id number] ROOM: [facility] DOCTOR: ALEK DAVIS MD BIRTHDATE: [birth year] LUNGS: Clear to auscultation bilaterally. HEART: Regular rhythm, no S3, no palpable thrills. ABDOMEN: Benign, nontender. Bowel sounds normal. EXTREMITIES: Showed trace edema. Distal pulses palpable. Right knee was slightly swollen. NEUROLOGIC: Alert with no focal neurologic deficit. RECTAL: Deferred. GENITOURINARY: Deferred. REVIEW OF THE DIAGNOSTIC TESTS: Initial EKG showed sinus rhythm, nonspecific ST changes. Second EKG showed nondiagnostic inferior ST elevation with significant anterolateral ST-T changes. Third EKG showed resolution of ST depression. CBC, chemistry, labs reviewed; pertinent labs including potassium 3.8, magnesium 2.4, creatinine 1.42. Cardiac troponins are 0.015, 0.434 and 1.0. Echo from April 2018 showed EF of 40%. Stress test in December 2017 showed a large fixed inferior defect, EF 26%. IMPRESSION: 1. Non-ST elevation myocardial infarction. 2. Right knee swelling, possible gouty arthritis. 3. Coronary artery disease, status post right coronary artery stent. 4. Acute kidney injury. 5. Hypertension. 6. Tobacco use. 7. Alcohol use. RECOMMENDATIONS: 1. Continue his aspirin, beta blockers. Currently, he is on nitro paste and heparin. 2. The patient was on Brilinta at home. We will start Plavix 75 mg daily; however, the patient was on low dose of Brilinta 60 b.i.d. after his one year of Brilinta 90 b.i.d. 3. Patient strongly counseled to quit smoking and drinking. 4. Recommend cardiac catheterization due to his IN, chest pain and significant EKG changes. 5. Cardiac catheterization scheduled for Monday at 9:30 a.m. at [facility] in [place], [place]. However, if the patient develops any recurrent chest pain with EKG changes, he may need urgent cardiac catheterization. 6. A 2D echo was done and is pending. 7. No family at bedside at the time of examination. 8. Above recommendations were discussed with the patient. 9. Hold his Cozaar due to his elevated creatinine. 10. Risks and benefits of cardiac catheterization, angioplasty, stent and possible bypass surgery was discussed and the patient is agreeable to proceed with cardiac catheterization. 11. Monitor his blood counts and renal function. [place], [place] REPORT OF CONSULTATION NAME: [facility]AZ [id number] UNIT #: [id number] ROOM: [facility] DOCTOR: RYAN BOGGS,ALEK BIRTHDATE: [birth year] ALEK DAVIS MD CM:CONSTR:REPORT OF CONSULTATION 30 03/23/19 0433 interface
--- NOTE | ~2019-03-20 | PR ---
[place], [place] PROGRESS NOTE NAME: CHERELLE ALMARAZ [facility] #: [id number] UNIT #: [id number] ROOM: [facility] DOCTOR: GABRIEL BOGGS,JACKIE Nicole BIRTHDATE: [birth year] DOS: NEPHROLOGY FOLLOW UP NOTE SUBJECTIVE: The patient was seen and examined. He is awake and alert. Resting comfortably. Denied shortness of breath, fevers or chills. He received a liter of fluid earlier today. PHYSICAL EXAMINATION: VITAL SIGNS: Temperature afebrile, pulse 66, respiratory rate 21, blood pressure 96/54. HEENT: Shows no JVD. Mucous membranes appear dry. LUNGS: Diminished breath sounds with no wheeze. HEART: S1, S2. No rub, thrill or gallop. ABDOMEN: Soft, nontender. EXTREMITIES: Had no edema. SKIN: Showed no rash. LABORATORY DATA: Hemoglobin 9.3, white count 9.6, platelets 337, BUN 23, creatinine 1.37. Sodium 140, potassium 4.5, CO2 of 22, calcium 8.0, phosphorus 3.1, magnesium 2.6, albumin 2.7. IMPRESSION: 1. Acute kidney injury, likely prerenal. The patient's renal function is improved and is now stable. Continue to monitor labs while in the hospital. Dose meds for current creatinine clearance. Replace electrolytes as needed. 2. Anemia. Follow H and H. Transfuse as needed. 3. Non-ST elevation myocardial infarction. The patient is on treatment per Cardiology. 4. Gout. Appears clinically improved. He is on steroids. 5. Questionable pneumonia. The patient is on antibiotics. JACKIE RIOS MD CM:PNTRANS [id number] JACKIE RIOS MD 03/23/19 3549 interface
--- NOTE | ~2019-03-20 | EKG ---
[place], [place] ELECTROCARDIOGRAM REPORT NAME: CHERELLE ALMARAZ UNIT #: [id number] ROOM: [facility] DOCTOR: MANDY DRAFT REPORT BIRTHDATE: [birth year] [facility] Test Date: 2019-03-22 Test Time: 08:50:04 Pat Name: CHERELLE ALMARAZ Department: Room: [place] [address] Gender: M Fishing Instructor: Sandy Moulton : 1950 Requested By: EVI ROGERS Order Number: [id number] Reading MD: Mary Baker Measurements Intervals [place] Rate: 72 P: 47 OK: 184 QRS: 31 QRSD: 101 T: -40 QT: 409 QTc: 448 Interpretive Statements Sinus rhythm Borderline low voltage, extremity leads No previous ECG available for comparison Electronically Signed On 03-22-2019 12:17:08 PDT by Mary Baker CM:EKGRPT:ELECTROCARDIOGRAM REPORT [id number] EVI ROGERS EPIPHANY DRAFT REPORT EVI ROGERS
[2019-03-20 16:28] VITALS: BP 118/65
[~2019-03-20 16:28] MED LIST changes: +TYLENOL325 M1 PO
[2019-03-20 17:16] LABS: HEMOGLOBIN 9.2 g/dl (14.0-18.0); MEAN CELL VOLUME 108.4 fl (80.0-94.0); MEAN CORPUSCULAR HGB 36.9 pg (27.0-31.0); MEAN CORPUSCULAR HGB CONC 34.1 g/dl (33.0-37.0); MEAN PLATELET VOLUME 9.2 fl (9.6-12.3); PLATELET COUNT AUTOMATED 288 10*3/uL (130-400); RED BLOOD COUNT 2.49 10*6/uL (4.50-5.90); RED CELL DISTRI WIDTH 13.3 % (0-14.5); WHITE BLOOD COUNT 4.4 10*3/uL (4.8-10.8)
[2019-03-20 17:27] LABS: ACT PARTIAL THROMBO TIME 27.4 SECONDS (20.0-32.1); INTERNATIONAL NORM RATIO 0.9 (2.0-3.5)
[2019-03-20 17:30] LABS: ALBUMIN 3.1 gm/dl (3.1-4.5); ALKALINE PHOSPHATASE 46 U/L (45-117); BUN 18 mg/dl (7-24); CHLORIDE 99 mmol/L (98-107); CREATININE 1.38 mg/dL (0.70-1.30); POTASSIUM 4.4 mmol/L (3.5-5.1); SGOT/AST 19 IU/L (3-35); SGPT/ALT 17 U/L (12-78); SODIUM 129 mmol/L (136-145); TOTAL PROTEIN 7.1 gm/dL (6.4-8.2); URIC ACID 10.6 mg/dL (3.5-7.2)
[2019-03-20 17:55] LABS: BASOPHILS 1 % (0-1); PLATELET SUFFICIENCY NORMAL (NORMAL); TOTAL CELLS COUNTED 100 #CELLS
[2019-03-20 21:20] VITALS: BP 144/83
--- NOTE | 2019-03-20 21:20 | NUR ---
A 69, admitted to , under the services of NEHEMIAH Vale DO with a diagnosis of TRACY, GOUT OF LEFT ANKLE, HEMARTHROSIS OF RIGHT KNEE. Chief complaint is PAIN AND SWELLING TO RIGHT KNEE AND ANKLE. ONSET OF SYMPTOMS 2 WEEKS. Patient arrived via wheel chair from ER. Monitor applied. Initial assessment completed. Vital signs taken and recorded. NEHEMIAH VALE DO notified of admission to the unit. Orders received. See assessment for past medical history, medications and allergies. Patient and/or family oriented to unit. [address] visitation policy reviewed. Clothing/patient valuable form completed. POLINA PEÑA
[2019-03-20] MEDS ORDERED: METOPROLOL SUCC25 M2 PO (21:36)
[2019-03-20] MEDS ORDERED: LOSARTAN POTASS25 M1 PO (21:37)
[2019-03-20] MEDS ORDERED: BRILINTA60 MG PO (21:38)
[2019-03-20] MEDS ORDERED: IMDUR SA30 MG PO (21:44)
--- NOTE | 2019-03-20 22:13 | NUR ---
HOME MEDICATIONS TAKEN TO PHARMACY BY PABLO ADHIKARI. WALLET WITH MONEY TAKEN TO LOCK BOX BY PABLO ADHIKARI.
--- NOTE | 2019-03-20 22:19 | NUR ---
AREA TO RIGHT ANKLE BLANCHABLE. DENIES NEED FOR NICOTINE PATCH OR PAIN MED AT THIS TIME.
[2019-03-21] VITALS: BP 124/58
[2019-03-21 06:24] LABS: HEMATOCRIT 28.5 % (42.0-52.0); HEMOGLOBIN 9.5 g/dl (14.0-18.0); MEAN CELL VOLUME 110.9 fl (80.0-94.0); MEAN CORPUSCULAR HGB CONC 33.3 g/dl (33.0-37.0); MEAN PLATELET VOLUME 9.7 fl (9.6-12.3); PLATELET COUNT AUTOMATED 307 10*3/uL (130-400); RED BLOOD COUNT 2.57 10*6/uL (4.50-5.90); RED CELL DISTRI WIDTH 13.5 % (0-14.5)
[2019-03-21 06:50] LABS: OVALOCYTES FEW; PLATELET SUFFICIENCY NORMAL (NORMAL); POLYCHROMASIA SLIGHT; SCHISTOCYTES FEW; TOTAL CELLS COUNTED 100 #CELLS
[2019-03-21 06:51] LABS: ALBUMIN 2.9 gm/dl (3.1-4.5); POTASSIUM 4.8 mmol/L (3.5-5.1); TOTAL PROTEIN 6.7 gm/dL (6.4-8.2)
[2019-03-21 06:57] LABS: CREATININE 1.45 mg/dL (0.70-1.30); PHOSPHOROUS 4.8 mg/dL (2.5-4.9); THYROID STIM HORMONE (HS) 1.09 uIU/ml (0.358-4.75)
[2019-03-21 07:31] LABS: VITAMIN D, 25-HYDROXY 20.2 ng/mL (30-100)
--- NOTE | 2019-03-21 09:00 | NUR ---
Tip Banding Machine Operator in to talk to patient. Patient states lives at home with alone. There are few steps in the home. Physician: Pharmacy: [facility] services: none Patient's level of ADLs: INDEPENDENT Patient has working utilities: all working DME: none Follow-up physician's appointment after d/c: will be made by hospitalist nurse director upon discharge Does patient want to access PORTAL?: no Discharge plan discussed with patient he states he lives at home alone, he has family that checks on him, he states he doesn't and uses cab services for doctors appointments and to get groceries, discussed a discharge plan including a short term group home patient denied also discussed with him VNA and he also declined this, case management will follow. GEREMIAS HENSON
--- NOTE | 2019-03-21 09:59 | NUR ---
Medicated with norco per prn order for complaints of pain to rt inner knee. States pain is 3-4 on 1-10 pain scale.
--- NOTE | 2019-03-21 11:00 | NUR ---
States that pain medication effective.
[2019-03-21 12:00] VITALS: BP 115/42
[2019-03-21 16:00] VITALS: BP 130/57
[2019-03-21 20:00] VITALS: BP 112/50
[2019-03-22] VITALS: BP 144/66
--- NOTE | 2019-03-22 05:00 | NUR ---
PATIENT WOKE UP WITH TERRIBLE EPIGASTRIC PAIN. PATIENT DIAPHORETIC AND CLUTCHING CHEST. DR GREEN NOTIFIED .EKG AND TROPONIN ORDERED.
--- NOTE | 2019-03-22 05:15 | NUR ---
DR. GREEN TO FLOOR TO SEE PATIENT. DR HYDE CALLED. DR. GREEN SPOKE WITH DR HYDE. PATIENT TO BE TRANSFERRED TO [facility].
--- NOTE | 2019-03-22 05:30 | NUR ---
[place]IENT [place]SP[place] [facility]
--- NOTE | 2019-03-22 05:30 | NUR ---
PATIENT ARRIVED TO [facility] VIA BED. PATIENT C/O CHEST PAIN THAT IS NON-RADIATING AND DESCRIBED A SHARP STABBING PAIN. DR. HYDE CONSULTED. HEPARIN DRIP INITIATED. NITRO-BID PASTE APPLIED AND MORPHINE GIVEN FOR PAIN. EKG AND TROPONINS ORDERED.
--- NOTE | 2019-03-22 05:45 | NUR ---
REPORT GIVEN TO LISETTE ADHIKARI.
--- NOTE | 2019-03-22 06:00 | NUR ---
TROPONIN RESULTS REVIEWED WITH DR GREEN. ORDERS RECEIVED FOR GI COCKTAIL. SPOKE WITH DR. HYDE. PATIENT TO BE NPO UNTIL SEEN BY DR. HYDE.
[2019-03-22 06:24] LABS: ALBUMIN 3.3 gm/dl (3.1-4.5); BUN 23 mg/dl (7-24); CHLORIDE 114 mmol/L (98-107); CREATININE 1.42 mg/dL (0.70-1.30); PHOSPHOROUS 3.1 mg/dL (2.5-4.9); SGOT/AST 14 IU/L (3-35); SGPT/ALT 15 U/L (12-78); SODIUM 138 mmol/L (136-145); TOTAL PROTEIN 7.5 gm/dL (6.4-8.2)
[2019-03-22 06:25] LABS: ALKALINE PHOSPHATASE 48 U/L (45-117)
[2019-03-22 06:33] LABS: POTASSIUM 3.8 mmol/L (3.5-5.1)
[2019-03-22 07:11] LABS: HEMATOCRIT 29.1 % (42.0-52.0); HEMOGLOBIN 9.8 g/dl (14.0-18.0); MEAN CELL VOLUME 111.5 fl (80.0-94.0); MEAN CORPUSCULAR HGB 37.5 pg (27.0-31.0); MEAN CORPUSCULAR HGB CONC 33.7 g/dl (33.0-37.0); MEAN PLATELET VOLUME 9.7 fl (9.6-12.3); PLATELET COUNT AUTOMATED 385 10*3/uL (130-400); RED BLOOD COUNT 2.61 10*6/uL (4.50-5.90); RED CELL DISTRI WIDTH 13.8 % (0-14.5); WHITE BLOOD COUNT 11.5 10*3/uL (4.8-10.8)
--- NOTE | 2019-03-22 07:29 | NUR ---
24 HR chart check completed.
[2019-03-22 07:34] LABS: ATYPICAL LYMPHS 1 % (0-0); BURR CELLS FEW; PLATELET SUFFICIENCY NORMAL (NORMAL); TOTAL CELLS COUNTED 100 #CELLS
[2019-03-22 07:37] LABS: SCHISTOCYTES FEW
[2019-03-22 08:00] VITALS: BP 115/65
--- NOTE | 2019-03-22 08:26 | NUR ---
Occupational Therapy referral received when patient in room 405. Patient transferred to ICCU for a decline in status. If patient should have a decline in ADLs, safety or in need of d/c planning, consider occupational therapy referral. Thank you. Chloé Pizano OTR/L
--- NOTE | 2019-03-22 08:54 | NUR ---
PT C/O SEVERE CHEST PAIN THAT DID NOT RADIATE. RATED IT A 7. ALSO C/O SEVERE HEART BURN. VITALS STABLE AT THIS TIME. MEDICATED WITH ZOFRAN 2MG IV AND NORCO. TROPONIN ELEVATED AT 0.[address] ROGERS OF THIS AND THAT HE HAS HAD NO RELIEF FROM THE CHEST PAIN AND HEART BURN. MORPHINE 2.5MG IV AND GI COCKTAIL ORDERED AND ADMINISTERED AND PT IS PAIN FREE AT THE MOVEMENT AND IS FINALLY RELAXING IN HIS BED COMFORTABLE. PTT WAS ALSO ORDERED STAT BC THERE WAS NOT ONE DRAWN PRIOR TO START OF HEPARIN GTT.
[2019-03-22 12:00] VITALS: BP 139/81
[2019-03-22 13:38] LABS: BILIRUBIN NEGATIVE (NEGATIVE); BLOOD NEGATIVE (NEGATIVE); CLARITY CLEAR (CLEAR); COLOR YELLOW (YELLOW); GLUCOSE TRACE (NEGATIVE); KETONE NEGATIVE (NEGATIVE); LEUKO ESTERASE NEGATIVE (NEGATIVE); NITRITE NEGATIVE (NEGATIVE); UROBILINOGEN 0.2 E.U./dl (0.2-1.0)
[2019-03-22 13:49] LABS: BACTERIA TRACE; EPITHELIAL CELLS 0-2; WBC 0-2 wbc/hpf (0-5)
[2019-03-22 16:00] VITALS: BP 120/69
--- NOTE | 2019-03-22 19:04 | NUR ---
HEPARIN INCREASED PER POLICY SINCE LAST APTT WAS LOW. NEXT APTT ORDERED FOR 0130 IN AM.
--- NOTE | 2019-03-22 19:55 | NUR ---
ATIVAN 1MG GIVEN AT THIS TIME, PATIENT WAS UP AT THE BEDSIDE USING URINAL AND WAS VERY TREMULOUS IN HANDS AND UPPER EXTREMITIES. RN WILL MONITOR FOR REDUCTION IN SYMPTOMS
[2019-03-22 20:00] VITALS: BP 94/50
--- NOTE | 2019-03-22 20:00 | NUR ---
PATIENT PULSE DROPPED TO 76% ON 3LNC AFTER ATIVAN ADMINISTRATION, RN TITRATED NASAL CANNULA UP TO 6LITERS AND INSTRUCTED PATIENT TO TAKE DEEP BREATHS. PULSE OX REMAINS BELOW 80 SO RN APPLIED NON-REBREATHER TO PATIENT AT 15LITERS WHILE ENCOURAGING PATIENT TO TAKE DEEP BREATHS. PULSE OX SLOWLY IMPROVING. RN AT BEDSIDE
--- NOTE | 2019-03-22 20:15 | NUR ---
PATIENT PULSE OX RECOVERING SLOWLY, CURRENTLY AT 95% ON 15LITERS NON-REBREATHER. RN REMAINS AT BEDSIDE
--- NOTE | 2019-03-22 20:51 | NUR ---
PATIENT AGAIN MEDICATED WITH ATIVAN. PATIENT CLIMBING OUT OF BED, STATES HE'S LEAVING. PATIENT ASSISTED BACK INTO BED AND HANDS AND UPPER EXTREMITIES ARE AGAIN TREMORING. RN WILL MONITOR
--- NOTE | 2019-03-22 21:35 | NUR ---
PATIENT CONFUSED, ATTEMPTING TO CLIMB OUT OF BED, HAS REMOVED BLOOD PRESSURE CUFF, PULSE OXIMETER, NON-REBREATHER FACEMASK AND IV TO THE LEFT ANTECUBITAL. BLEEDING CONTROLLED, DRY DRESSING APPLIED. OXYGEN REAPPLIED WELL PULSE OXIMETER, AND BLOOD PRESSURE CUFF. ATTEMPTS WERE MADE TO REORIENT PATIENT, RN ENCOURAGED PATIENT TO LAY BACK AND TAKE A NAP. PATIENT STATES HE WILL. BED ALARM APPLIED FOR PATIENT SAFETY. RN WILL CONTINUE TO MONITOR
[2019-03-23] VITALS: BP 92/52
--- NOTE | 2019-03-23 02:35 | NUR ---
DR CABAN CALLED AND UPDATED ON PATIENT CONDITION, STATES HE WILL BE UP ON THE FLOOR IN A MINUTE
--- NOTE | 2019-03-23 02:40 | NUR ---
Patient placed onto NIV for low SPO2 per 's orders at 12/6 and 40% O2. Patient's respirations have improved and SPO2 increased to 96%.
[2019-03-23 02:55] LABS: ABG BASE EXCESS -4.3 mmol/L (-2.0-2.0); ABG HCO3 18.8 mmol/l (22-26); ABG O2 SATURATION 74.7 % (95-97); ARTERIAL BLOOD GAS PCO2 28.3 mmHg (35-45); ARTERIAL BLOOD GAS PH 7.433 (7.35-7.45)
[2019-03-23 03:01] LABS: ARTERIAL BLOOD GAS PO2 39.3 mmHg (80-90)
[2019-03-23 03:14] LABS: ALBUMIN 2.8 gm/dl (3.1-4.5); ALKALINE PHOSPHATASE 42 U/L (45-117); BUN 22 mg/dl (7-24); CHLORIDE 111 mmol/L (98-107); CREATININE 1.36 mg/dL (0.70-1.30); POTASSIUM 4.4 mmol/L (3.5-5.1); SGOT/AST 19 IU/L (3-35); SGPT/ALT 14 U/L (12-78); SODIUM 140 mmol/L (136-145); TOTAL PROTEIN 6.5 gm/dL (6.4-8.2)
--- NOTE | 2019-03-23 03:15 | NUR ---
DR GREEN ON FLOOR MADE AWARE OF ELEVATED TROPONIN
--- NOTE | 2019-03-23 03:23 | NUR ---
[facility] CALLED REGARDING NEWLY ELEVATED TROPONIN, AWAITING CALL BACK.
--- NOTE | 2019-03-23 03:25 | NUR ---
CALL BACK FROM DR SHEPARD, NO NEW ORDERS
[2019-03-23 04:00] VITALS: BP 100/49
[2019-03-23 04:13] LABS: ABG BASE EXCESS -3.9 mmol/L (-2.0-2.0); ABG HCO3 19.1 mmol/l (22-26); ABG O2 SATURATION 99.2 % (95-97); ARTERIAL BLOOD GAS PCO2 28.2 mmHg (35-45); ARTERIAL BLOOD GAS PH 7.444 (7.35-7.45)
[2019-03-23 05:20] LABS: ABG BASE EXCESS -4.4 mmol/L (-2.0-2.0); ABG HCO3 18.7 mmol/l (22-26); ARTERIAL BLOOD GAS PCO2 28.4 mmHg (35-45); ARTERIAL BLOOD GAS PH 7.432 (7.35-7.45); ARTERIAL BLOOD GAS PO2 73.5 mmHg (80-90)
--- NOTE | 2019-03-23 05:43 | NUR ---
DR FOLEY CALLED AT THIS TIME REGARDING CONSULT.
[2019-03-23 06:05] LABS: HEMOGLOBIN 9.3 g/dl (14.0-18.0); MEAN CELL VOLUME 111.1 fl (80.0-94.0); MEAN CORPUSCULAR HGB 36.9 pg (27.0-31.0); MEAN CORPUSCULAR HGB CONC 33.2 g/dl (33.0-37.0); MEAN PLATELET VOLUME 9.9 fl (9.6-12.3); PLATELET COUNT AUTOMATED 337 10*3/uL (130-400); RED BLOOD COUNT 2.52 10*6/uL (4.50-5.90); RED CELL DISTRI WIDTH 14.3 % (0-14.5); WHITE BLOOD COUNT 9.6 10*3/uL (4.8-10.8)
[2019-03-23 06:33] LABS: CHLORIDE 111 mmol/L (98-107); POTASSIUM 4.5 mmol/L (3.5-5.1); SODIUM 140 mmol/L (136-145)
[2019-03-23 06:39] LABS: ALBUMIN 2.7 gm/dl (3.1-4.5); ALKALINE PHOSPHATASE 38 U/L (45-117); BUN 23 mg/dl (7-24); CREATININE 1.37 mg/dL (0.70-1.30); PHOSPHOROUS 3.1 mg/dL (2.5-4.9); SGOT/AST 19 IU/L (3-35); SGPT/ALT 14 U/L (12-78); TOTAL PROTEIN 5.7 gm/dL (6.4-8.2)
[2019-03-23 07:16] LABS: PLATELET SUFFICIENCY NORMAL (NORMAL); TOTAL CELLS COUNTED 100 #CELLS
[2019-03-23 07:17] LABS: POLYCHROMASIA SLIGHT
--- NOTE | 2019-03-23 07:44 | NUR ---
Shift chart check completed.24 HR chart check completed.
[2019-03-23 08:00] VITALS: BP 125/62
--- NOTE | 2019-03-23 10:20 | NUR ---
ON ASSESSMENT PATIENT WAS ON BIPAP, RESTING EASILY WITHOUT COMPLAINTS. THIS WAS CHANGED TO NASAL CANNULA WHILE HE ATE AND HAD AM CARE DONE. THEN REAPPLIED AT ORDERED SETTINGS. HEPARIN DRIP CONTINUES AT 16UNITS/KG/HR. BICARB DRIP INFUSING AT 100/HR X 1. ANTIBIOTICS GIVEN ORDERED. HE HAS A MOIST NON-PRODUCTIVE COUGH. HE DENIES HALLUCINATIONS. HE HAS A VISIBLE TREMOR BUT ABLE TO FEED HIMSELF BREAKFAST. SEE ALL APPROPRIATE INTERVENTIONS.
[2019-03-23 12:00] VITALS: BP 96/54
--- NOTE | 2019-03-23 13:00 | NUR ---
DR FOLEY HAS VISITED.
--- NOTE | 2019-03-23 13:09 | NUR ---
DR FOLEY ADJUSTED FIO2 ON BIPAP TO 30%
--- NOTE | 2019-03-23 14:34 | NUR ---
PT HAS BEEN ACCOMPANIED TO AND FROM RADIOLOGY FOR CT CHEST. TOLERATED WELL. ON RETURN NASAL CANNULA 4L/MIN. PULSE OX LOW 90'S. DR SHEPARD HAS VISITED.
--- NOTE | 2019-03-23 15:07 | NUR ---
DR RIOS HAS VISITED.
--- NOTE | 2019-03-23 15:22 | NUR ---
DR FOLEY CALLED IN, HAS REVIEWED THE CT SCAN. ORDERS RECEIVED. PT RESTING EASILY AT PRESENT. HE DECLINED ANY LUNCH. NO SEIZURE ACTIVITY.
[2019-03-23 16:00] VITALS: BP 97/53
--- NOTE | 2019-03-23 17:01 | NUR ---
BIPAP APPLIED FOR TACHYPNEA AND DESATURATING TO 84%
[2019-03-23 20:00] VITALS: BP 104/59
--- NOTE | 2019-03-23 20:20 | NUR ---
ATIVAN GIVEN PER DRS ORDERSS FOR C/O SHORTNESS OF BREATH, ANXIOUSNESS AND CHEST PAIN, DR CALLED AND MADE AWARE.
--- NOTE | 2019-03-23 21:10 | NUR ---
1MG OF MORPHINE GIVEN PER DRS ORDERS FOR C/O CHEST PAIN AND SHORTNESS OF BREATH. STAT EKG ORDERED AT THIS TIME. RN AT BEDSIDE, DR AT BEDSIDE, RESPIRATORY AND EKG AT BEDSIDE
--- NOTE | 2019-03-23 23:50 | NUR ---
1MG OF ATIVAN GIVEN FOR CONTINUED ANXIETY AND TREMORS TO BILATERAL HANDS.
[2019-03-24] VITALS: BP 123/74
--- NOTE | 2019-03-24 | NUR ---
PATIENT DESATURATING TO 78%, OXYGEN VIA BIPAP INCREASED, PATIENT AGAIN C/O PAIN IN CHEST AND SHORTNESS OF BREATH, RESPIRATORY RATE INCREASED TO 50'S AND HEARTRATE INCREASED TO 120'S, NEW ST DEPRESSION SEEN ON RADAR ENGINEER, STATE EKG ORDERED AND DR CHAHAL MADE AWARE, STATES HE WILL BE UP TO ICU
--- NOTE | 2019-03-24 00:15 | NUR ---
STAT EKG RESULTS BACK, DR SHEPARD CALLED AT THIS TIME
--- NOTE | 2019-03-24 00:20 | NUR ---
2MG OF MORPHINE GIVEN PER DR SHEPARD'S ORDER RN WILL MONITOR
--- NOTE | 2019-03-24 00:25 | NUR ---
PATIENTS SPO2 89-90% ON BIPAP WITH 40% O2. INCREASED O2 TO 50%. SATS INCREASED TO 96%. WILL CONTINUE TO MONITOR
--- NOTE | 2019-03-24 01:27 | NUR ---
PATIENT RESTING COMFORTABLLY AT THIS TIME, STATES CHEST PAIN HAS LESSENEDE SINCE EARLIER, CONTINUES TO WEAR THE BIPAP, PULSE OX IS 95%, HEPARIN INFUSING. RN WILL CONTINUE TO MONITOR
[2019-03-24 04:00] VITALS: BP 131/98
[2019-03-24 04:56] LABS: HEMATOCRIT 25.1 % (42.0-52.0); HEMOGLOBIN 8.3 g/dl (14.0-18.0); MEAN CELL VOLUME 111.6 fl (80.0-94.0); MEAN CORPUSCULAR HGB 36.9 pg (27.0-31.0); MEAN CORPUSCULAR HGB CONC 33.1 g/dl (33.0-37.0); MEAN PLATELET VOLUME 9.7 fl (9.6-12.3); NUCLEATED RED BLOOD CELL 0.3 % (0.0-0.0); PLATELET COUNT AUTOMATED 286 10*3/uL (130-400); RED BLOOD COUNT 2.25 10*6/uL (4.50-5.90); RED CELL DISTRI WIDTH 14.4 % (0-14.5); WHITE BLOOD COUNT 9.5 10*3/uL (4.8-10.8)
--- NOTE | 2019-03-24 05:08 | NUR ---
ATIVAN GIVEN AT THIS TIME, FOR HAND TREMORS, C/O NERVOUSNESS AND ANXIETY, WELL INCREASED RESPIRATORY RATE
[2019-03-24 05:19] LABS: TOTAL CELLS COUNTED 100 #CELLS
[2019-03-24 05:20] LABS: PLATELET SUFFICIENCY NORMAL (NORMAL)
[2019-03-24 05:22] LABS: CREATININE 1.43 mg/dL (0.70-1.30); POTASSIUM 3.9 mmol/L (3.5-5.1)
--- NOTE | 2019-03-24 05:30 | NUR ---
DR CHAHAL CALLED TO THE FLOOR TO CHECK ON PATIENT, PATIENT INCREASED RESPIRATIONS TO 50, BLOOD PRESSURE IS NOW ELEVATED AND DIFFICULTY MAINTAINING PULSE OXIMETRY. RESPIRATORY HERE TO OBTAIN ABG AND ASSIST WITH PULSE OX
[2019-03-24 05:58] LABS: ABG O2 SATURATION 88.8 % (95-97); ARTERIAL BLOOD GAS PCO2 26.7 mmHg (35-45); ARTERIAL BLOOD GAS PH 7.44 (7.35-7.45); ARTERIAL BLOOD GAS PO2 58.4 mmHg (80-90)
--- NOTE | 2019-03-24 06:13 | NUR ---
DR FOLEY CALLED WITH ABG RESULTS AND ASKED FOR RECOMMENDATION REGARDING TREATMNETS FOR PATIENT
--- NOTE | 2019-03-24 06:14 | NUR ---
DR CHAHAL MADE AWARE OF DR OG VERNON
--- NOTE | 2019-03-24 06:21 | NUR ---
PER DR FOLEY SETTINGS CHANGED TO 17/06, SPO2 94%, HR 87, RR 35
--- NOTE | 2019-03-24 06:34 | NUR ---
HEPARIN ON HOLD FOR 1 HOUR AT THIS TIME, DUE TO HIGH APTT.
--- NOTE | 2019-03-24 07:24 | NUR ---
PT IS ON BIPAP AT THIS TIME. HR 85, RR 30, SPO2 97% BIPAP 60%
--- NOTE | 2019-03-24 10:18 | NUR ---
BIPAP OFF FOR MEDS/FOOD\PT DESATED TO 84 ON NC6 LITERS W/ RESP >50 WITHIN TWO MINUTES, BIPAP PLACED BACK ON
--- NOTE | 2019-03-24 12:01 | NUR ---
DR SHEPARD HERE, STAT CXR DONE, LASIX AND HENSON ORDERED
[2019-03-24 13:12] LABS: ABG BASE EXCESS -0.6 mmol/L (-2.0-2.0); ABG HCO3 21.4 mmol/l (22-26); ABG O2 SATURATION 97.9 % (95-97); ARTERIAL BLOOD GAS PCO2 26.7 mmHg (35-45); ARTERIAL BLOOD GAS PH 7.514 (7.35-7.45); ARTERIAL BLOOD GAS PO2 83.1 mmHg (80-90)
--- NOTE | 2019-03-24 15:29 | NUR ---
PT ON BIPAP AT THIS TIME, TITRATED FIO2 TO 50%, SPO2 100% RR 28, HR 81
[2019-03-24 15:59] LABS: HEMATOCRIT 29.8 % (42.0-52.0); HEMOGLOBIN 9.6 g/dl (14.0-18.0)
[2019-03-24 16:00] VITALS: BP 93/51
--- NOTE | 2019-03-24 19:11 | NUR ---
Shift chart check completed.24 HR chart check completed.
--- NOTE | 2019-03-24 19:27 | NUR ---
AFTER READING DR SHEPARD'S PROGRESS NOTE OF TODAY IT MENTIONED HOLDING BETA BLOCKERS BUT PT IS STILL ORDERED TOPROL XL AND WILL BE TRANSFERRED IN THE AM. I PHONED AND SPOKE TO DR SHEPARD TO ASK IF HE WANTED THE TOPROL D/C. AFTER DISCUSSION DR SHEPARD DECIDED NOT TO D/C THE TOPROL.
--- NOTE | 2019-03-24 19:40 | NUR ---
I ASKED PT IF ANYONE KNEW HE WAS IN THE HOSPITAL AND HE SAID "NO". HIS BROTHER, ANDRIA, IS LISTED EMERGENCY CONTACT. I ASKED PT IF I COULD CALL HIS BROTHER AND UPDATE HIM ON PLANS FOR TRANSFER TO [facility] TOMORROW MORNING AND PT SAID "YES". I SPOKE WITH PT'S NEPHEW, SUNIL, AND LET HIM KNOW PT HERE AND PLAN OF CARE.
--- NOTE | 2019-03-24 19:54 | NUR ---
ON ASSESSMENT PATIENT IS RESTING EASILY, WATCHING TV. NO RESPIRATORY DISTRESS. MONITOR NSR. SCATTERED CRACKLES ON AUSCULTATION. HENSON PATENT LT RYAN URINE. NO PERIPHERAL EDEMA. NO VOICED COMPLAINTS OF PAIN. PT WAS CONCERNED ABOUT HIS KEYS. THESE WERE LOCATED IN HIS PJ BOTTOMS AND PLACED IN HIS SHOE IN HIS BELONGINGS BAG.
[2019-03-24 20:00] VITALS: BP 99/59
--- NOTE | 2019-03-24 20:04 | NUR ---
BROTHER HERE TO SEE PATIENT.
--- NOTE | 2019-03-24 22:35 | NUR ---
COMPLETE BED BATH GIVEN. PT BECAME TACHYPNEIC AND TACHYCARDIC DURING THIS. BIPAP APPLIED FOR HIS COMFORT WITH RELIEF.
--- NOTE | 2019-03-24 23:15 | NUR ---
RESTORIL FOR REST. HE WANTS TO KEEP THE BIPAP ON FOR NOW.
[2019-03-25] VITALS: BP 114/64
--- NOTE | 2019-03-25 00:28 | NUR ---
BIPAP OFF PER PATIENT REQUEST. NASAL O2 ON AT 4L/MIN.
--- NOTE | 2019-03-25 00:46 | NUR ---
PT APPEARS TO BE SLEEPING AT THIS TIME. NPO FOR HEART CATH.
[2019-03-25 04:35] VITALS: BP 109/62
[2019-03-25 05:34] LABS: CREATININE 1.73 mg/dL (0.70-1.30)
[2019-03-25 06:03] LABS: HEMATOCRIT 25.7 % (42.0-52.0); HEMOGLOBIN 8.5 g/dl (14.0-18.0); MEAN CELL VOLUME 108.9 fl (80.0-94.0); MEAN CORPUSCULAR HGB CONC 33.1 g/dl (33.0-37.0); MEAN PLATELET VOLUME 10.4 fl (9.6-12.3); NUCLEATED RED BLOOD CELL 0.1 10*3/uL (0.0-0.0); PLATELET COUNT AUTOMATED 291 10*3/uL (130-400); RED BLOOD COUNT 2.36 10*6/uL (4.50-5.90); RED CELL DISTRI WIDTH 14.3 % (0-14.5); WHITE BLOOD COUNT 7.6 10*3/uL (4.8-10.8)
--- NOTE | 2019-03-25 06:20 | NUR ---
HEPARIN DRIP INCREASED TO 15UNITS/KG/HR FOR PTT OF 44.7. PT SLEEPING EASILY. DID NOT GIVE IV LASIX THIS AM PT IS FOR HEART CATH TODAY. CREAT 1.73.
[2019-03-25 06:26] LABS: PLATELET SUFFICIENCY NORMAL (NORMAL); POLYCHROMASIA SLIGHT; ROULEAUX SLIGHT; TOTAL CELLS COUNTED 100 #CELLS
--- NOTE | 2019-03-25 07:19 | NUR ---
REPORT CALLED TO [facility] STE[employer] AND GAS TURBINES ASSEMBLER. PT DISCHARGED WITH ALL OF HIS BELONGINGS, INCLUDING HIS WALLET, MEDS FROM HOME AND CLOTHES, AND HIS KEYS. DISCHARGED IN STABLE CONDITION WITH [facility].
== END 2019-03-25 07:19 | disposition short-term general hospital (02) | DRG 190 ==
LOC: ED 16:28 → 4E 19:53 → ICCU 19:53 → EDHOLD 19:53 → 4E 20:35 → ICCU 03-22 05:26
PROVIDERS: Emergency Medicine; Family Medicine; Internal Medicine; Internal Medicine Cardiovascular Disease; Internal Medicine Critical Care Medicine; Student in an Organized Health Care Education/Training Program; ADMIT Internal Medicine
DX: I21.4 Non-ST elevation (NSTEMI) myocardial infarction (principal); N17.0 Acute kidney failure with tubular necrosis; J96.01 Acute respiratory failure with hypoxia; I50.43 Acute on chronic combined systolic (congestive) and diastolic (congestive) heart failure; M25.061 Hemarthrosis, right knee; E87.1 Hypo-osmolality and hyponatremia; G93.40 Encephalopathy, unspecified; J44.1 Chronic obstructive pulmonary disease with (acute) exacerbation; J44.0 Chronic obstructive pulmonary disease with (acute) lower respiratory infection; E87.3 Alkalosis; I13.0 Hypertensive heart and chronic kidney disease with heart failure and stage 1 through stage 4 chronic kidney disease, or unspecified chronic kidney disease; D72.819 Decreased white blood cell count, unspecified; J18.9 Pneumonia, unspecified organism; D53.9 Nutritional anemia, unspecified; D72.810 Lymphocytopenia; R70.0 Elevated erythrocyte sedimentation rate; E83.41 Hypermagnesemia; Z72.6 Gambling and betting; F10.10 Alcohol abuse, uncomplicated; M10.061 Idiopathic gout, right knee; N18.9 Chronic kidney disease, unspecified; K21.9 Gastro-esophageal reflux disease without esophagitis; I25.10 Atherosclerotic heart disease of native coronary artery without angina pectoris; E78.5 Hyperlipidemia, unspecified; F17.210 Nicotine dependence, cigarettes, uncomplicated; Z95.5 Presence of coronary angioplasty implant and graft; Z71.6 Tobacco abuse counseling; Z79.899 Other long term (current) drug therapy; Z82.49 Family history of ischemic heart disease and other diseases of the circulatory system; I25.2 Old myocardial infarction

== ENCOUNTER 2019-05-02 15:54 | Emergency (ER) | payer OTHER ==
[~2019-05-02] VITALS: Ht 170.1 cm; Wt 54.9 kg
--- NOTE | ~2019-05-02 | EKG ---
[place], [place] ELECTROCARDIOGRAM REPORT NAME: CHERELLE ALMARAZ UNIT #: [id number] ROOM: DOCTOR: EPIPHANY DRAFT REPORT BIRTHDATE: [birth year] [facility] Test Date: 2019-05-02 Test Time: 17:36:25 Pat Name: CHERELLE ALMARAZ Department: Room: Gender: M Medical Front Desk Coordinator: Sandy Moulton : 1950 Requested By: WALTER ENAMORADO DNP Order Number: [id number] Reading MD: Ruth Nick MD Measurements Intervals [place] Rate: 63 P: 39 LA: 220 QRS: 38 QRSD: 122 T: 134 QT: 501 QTc: 513 Interpretive Statements Sinus rhythm,Prolonged LA interval,Probable left atrial enlargement Nonspecific intraventricular conduction delay,Inferior infarct, old Abnrm T, consider ischemia, anterolateral lds,Baseline wander in lead(s) V3 Compared to ECG 03/23/2019 23:56:37 First degree AV block now present Intraventricular conduction delay now present Myocardial infarct finding now present Sinus tachycardia no longer present Early repolarization no longer present Possible ischemia still present Electronically Signed On 05-03-2019 13:41:32 PDT by Ruth Nick MD CM:EKGRPT:ELECTROCARDIOGRAM REPORT [id number] WALTER ENAMORADO DNP EPIPHANY DRAFT REPORT WALTER ENAMORADO DNP
[~2019-05-02 15:54] MED LIST changes: +BRILINTA60 MG PO; +IMDUR SA30 MG PO; +METOPROLOL SUCC25 M2 PO
[2019-05-02 16:09] VITALS: BP 113/58
[2019-05-02 17:16] LABS: HEMOGLOBIN 9.8 g/dl (14.0-18.0); MEAN CELL VOLUME 102.6 fl (80.0-94.0); MEAN CORPUSCULAR HGB 31.4 pg (27.0-31.0); MEAN CORPUSCULAR HGB CONC 30.6 g/dl (33.0-37.0); MEAN PLATELET VOLUME 9.8 fl (9.6-12.3); PLATELET COUNT AUTOMATED 191 10*3/uL (130-400); RED BLOOD COUNT 3.12 10*6/uL (4.50-5.90); RED CELL DISTRI WIDTH 17.2 % (0-14.5); WHITE BLOOD COUNT 6.9 10*3/uL (4.8-10.8)
[2019-05-02 17:25] LABS: ACT PARTIAL THROMBO TIME 24.2 SECONDS (20.0-32.1); INTERNATIONAL NORM RATIO 0.9 (2.0-3.5)
[2019-05-02 17:38] LABS: ALBUMIN 2.9 gm/dl (3.1-4.5); CREATININE 1.64 mg/dL (0.70-1.30); POTASSIUM 3.1 mmol/L (3.5-5.1); TOTAL PROTEIN 6.6 gm/dL (6.4-8.2); TROPONIN I 0.031 ng/ml (<0.045); URIC ACID 8.9 mg/dL (3.5-7.2)
[2019-05-02 17:45] LABS: BASOPHILS 1 % (0-1); PLATELET SUFFICIENCY NORMAL (NORMAL); TOTAL CELLS COUNTED 100 #CELLS
[2019-05-02] MEDS ORDERED: CEPHALEXIN500 M1 PO (18:34)
[2019-05-02] MEDS ORDERED: PREDNISONE20 M1 PO (18:34)
[2019-05-02] MEDS ORDERED: ANTIBIOTIC28.4 GM T (18:35)
== END 2019-05-02 18:41 | disposition home or self-care (01) ==
LOC: ED 15:54
PROVIDERS: Nurse Practitioner Family
DX: T81.40XA Infection following a procedure, unspecified, initial encounter (principal); L08.9 Local infection of the skin and subcutaneous tissue, unspecified; M79.675 Pain in left toe(s); M10.9 Gout, unspecified; I25.10 Atherosclerotic heart disease of native coronary artery without angina pectoris; I25.2 Old myocardial infarction; F17.210 Nicotine dependence, cigarettes, uncomplicated; Z79.899 Other long term (current) drug therapy; Y83.8 Other surgical procedures as the cause of abnormal reaction of the patient, or of later complication, without mention of misadventure at the time of the procedure; Y92.89 Other specified places as the place of occurrence of the external cause

== ENCOUNTER 2019-05-05 09:48 | Emergency (ER) | payer OTHER ==
[~2019-05-05] VITALS: Ht 170.1 cm; Wt 54.9 kg
--- NOTE | ~2019-05-05 | EKG ---
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: : 1950 Requested By: CANDIE KRAMER Order Number: [id number] Reading MD: Mary Baker Measurements Intervals [place] Rate: 66 P: 26 HI: 185 QRS: 4 QRSD: 112 T: 131 QT: 466 QTc: 489 Interpretive Statements Sinus rhythm Inferior infarct, old Lateral leads are also involved Compared to ECG 05/02/2019 17:36:25 Atrial abnormality no longer present Intraventricular conduction delay no longer present Possible ischemia no longer present Myocardial infarct finding still present Electronically Signed On 05-06-2019 11:10:44 PST by Mary Baker CM:EKGRPT:ELECTROCARDIOGRAM REPORT [id number] CANDIE GALVAN DRAFT REPORT CANDIE KRAMER MD
[~2019-05-05 09:48] MED LIST changes: +ANTIBIOTIC28.4 GM T; +CEPHALEXIN500 M1 PO; +PREDNISONE20 M1 PO
[2019-05-05 09:50] VITALS: BP 117/52
[2019-05-05 10:14] LABS: BASO % 0.1 % (0.0-1.0); EOS % 0.1 % (1.0-4.0); LYMPH # 1.7 10*3/uL (1.3-4.4); LYMPH % 20.8 % (27.0-41.0); MEAN CELL VOLUME 101.8 fl (80.0-94.0); MEAN CORPUSCULAR HGB 32.7 pg (27.0-31.0); MEAN CORPUSCULAR HGB CONC 32.1 g/dl (33.0-37.0); MEAN PLATELET VOLUME 9.5 fl (9.6-12.3); MONO # 0.5 10*3/uL (0.1-1.0); MONO % 6.3 % (3.0-9.0); NEUT # 5.9 10*3/uL (2.3-7.9); NEUT % 72.2 % (47.0-73.0); PLATELET COUNT AUTOMATED 218 10*3/uL (130-400); RED BLOOD COUNT 2.75 10*6/uL (4.50-5.90); RED CELL DISTRI WIDTH 17.7 % (0-14.5); WHITE BLOOD COUNT 8.1 10*3/uL (4.8-10.8)
[2019-05-05 10:28] LABS: BUN 19 mg/dl (7-24); CHLORIDE 107 mmol/L (98-107); CREATININE 1.08 mg/dL (0.70-1.30); POTASSIUM 3.4 mmol/L (3.5-5.1); SODIUM 141 mmol/L (136-145)
[2019-05-05 10:42] LABS: ACT PARTIAL THROMBO TIME 23.1 SECONDS (20.0-32.1); INTERNATIONAL NORM RATIO 0.9 (2.0-3.5)
== END 2019-05-05 14:53 | disposition home or self-care (01) ==
LOC: ED 09:48
PROVIDERS: Emergency Medicine
DX: T82.198A Other mechanical complication of other cardiac electronic device, initial encounter (principal); I25.10 Atherosclerotic heart disease of native coronary artery without angina pectoris; K21.9 Gastro-esophageal reflux disease without esophagitis; M10.9 Gout, unspecified; I25.2 Old myocardial infarction; E78.5 Hyperlipidemia, unspecified; I11.0 Hypertensive heart disease with heart failure; I50.9 Heart failure, unspecified; F17.210 Nicotine dependence, cigarettes, uncomplicated; Z79.899 Other long term (current) drug therapy; Y84.8 Other medical procedures as the cause of abnormal reaction of the patient, or of later complication, without mention of misadventure at the time of the procedure; Y92.89 Other specified places as the place of occurrence of the external cause